=== PATIENT | female | born 1945 | race Caucasian/White ===

== ENCOUNTER → 2017-02-15 | Outpatient (CLI) | payer BC ==
[2017-02-15 11:22] LABS: CHOLESTEROL/HDL RATIO 4.1; THYROID STIMULATING HORMONE 3.87 uIu/ml (0.300-4.500)
[2017-02-15 11:23] LABS: ALT/SGPT 27 U/L (12-78); AST/SGOT 17 U/L (15-37); BLOOD UREA NITROGEN 14 mg/dl (7-18); BUN/CREATININE RATIO 11.7 (10-20); CALCIUM 8.9 mg/dl (8.5-10.1); CARBON DIOXIDE 24 mmol/L (21-32); CHLORIDE 109 mmol/L (98-107); GLUCOSE 114 mg/dl (70-99); POTASSIUM 4.4 mmol/L (3.5-5.1); SODIUM 143 mmol/L (136-145)
[2017-02-15 11:24] LABS: ALB/GLOB RATIO 0.9 (0.9-2); ALKALINE PHOSPHATASE 67 U/L (45-117)
[2017-02-15 12:01] LABS: ESTIMATED AVERAGE GLUCOSE 134 mg/dl; HA1C FLAG Normal (Normal)
== END | disposition home or self-care (01) ==
LOC: C.LAB 07:40
PROVIDERS: ATTEND Internal Medicine
DX: R73.9 Hyperglycemia, unspecified (principal); E78.5 Hyperlipidemia, unspecified; R73.09 Other abnormal glucose

== ENCOUNTER → 2017-03-08 | Outpatient (CLI) | payer BC ==
--- NOTE | 2017-03-08 09:48 | DIAGNOSTIC IMAGING REPORT ---
MRI OF THE BRAIN WITHOUT CONTRAST CLINICAL HISTORY: Motion disorder. Vertigo/dizziness. ATAXIA COMPARISON STUDY: February 2014 FINDINGS: Sagittal T1, axial diffusion, proton density and T2 weighted axial, coronal FLAIR, and axial T1-weighted images were acquired. No intra or extra-axial mass lesions are visualized Axial diffusion-weighted images reveal no evidence of acute or subacute infarction. There is no evidence of ventricular dilatation. Proton density T2-weighted and FLAIR images reveal slight progression in the scattered foci of increased T2 and FLAIR signal within the white matter. These are likely on a small vessel basis. There are no abnormal flow voids. IMPRESSION: 1. No evidence of intracranial mass on this noncontrast study 2. No evidence of acute or subacute infarction 3. Slight progression in the nonspecific foci of increased T2 and FLAIR signal within the white matter, likely on a small vessel basis Electronically signed by: Mahamed Martin M.D. 03/08/2017 9:46 AM Dictated Date/Time: 03/08/2017 9:42 AM
== END | disposition home or self-care (01) ==
LOC: C.MRIBC 08:38
PROVIDERS: ATTEND Internal Medicine
DX: R27.0 Ataxia, unspecified (principal)

== ENCOUNTER → 2017-05-01 | Outpatient (CLI) | payer BC ==
--- NOTE | 2017-05-01 15:35 | MAMMOGRAPHY REPORT ---
BILATERAL DIGITAL SCREENING MAMMOGRAM WITH CAD: 05/01/2017 CLINICAL HISTORY: Routine screening examination. TECHNIQUE: Bilateral CC and MLO views were obtained. Current study was also evaluated with a Compute r Aided Detection (CAD) system. COMPARISON: Comparison is made to exams dated: 05/04/2016 mammogram, 05/01/2015 mammogram, 04/30/2014 m ammogram, 05/02/2013 mammogram, 04/29/2013 mammogram, and 05/04/2012 mammogram - [facility] enter. BREAST COMPOSITION: The tissue of both breasts is almost entirely fatty. FINDINGS: There is a stable grouping of benign-appearing microcalcifications in the lower inner quadr ant of the left breast. No suspicious mass, architectural distortion or cluster of suspicious microc alcifications is seen. IMPRESSION: ACR BI-RADS CATEGORY 1: NEGATIVE There is no mammographic evidence of malignancy. A 1 year screening mammogram is recommended. The pa tient will receive written notification of the results. Approximately 10% of breast cancers are not detected with mammography. A negative mammographic report should not delay biopsy if a clinically suggestive mass is present. Nelli Box M.D. ay/:05/01/2017 14:36:48 Disaster Recovery Consultant: Magda ALVAREZ(R)(M), [facility] letter sent: Normal 1/2 BI-RADS Code: ACR BI-RADS Category 1: Negative
== END | disposition home or self-care (01) ==
LOC: C.MAMM 13:55
PROVIDERS: ATTEND Internal Medicine
DX: Z12.31 Encounter for screening mammogram for malignant neoplasm of breast (principal)

== ENCOUNTER 2024-08-11 14:08 | Inpatient (IN) ==
--- NOTE | 2024-08-11 14:58 | Emergency Department Note ---
Impression & Plan Weakness, Metastatic cancer ED Provider Note Provider: Quentin Evans MD CHIEF COMPLAINT: Weakness HISTORY OF PRESENT ILLNESS: Patient is a 79-year-old female past medical history of prior treated breast cancer in 2019 presenting here today with generalized weakness from home via ambulance. Patient started to have some headaches and then hearing issues in June and was diagnosed with multiple brain masses last month. Patient has been undergoing oncological workup radiation oncology 2 days ago. Had a PET scan on August 07 this year. Scheduled for radiation to start this coming . Still pending a biopsy to determine primary cancer although states that they seem to think this is likely lung cancer. Has not had a outpatient bronchoscopy for biopsy scheduled. Patient's been having significant generalized weakness over the past several weeks. Almost stuck on the couch. Patient has not had significant falls. Does report that she really worries about going to the bathroom as there are several steps she has to go to to get there. Has trouble getting off the toilet and then getting up to 2 steps back to the area where she stays at her house. states he has a bad back and just cannot keep up with this anymore. Came here as they need additional assistance. Patient has been eating and drinking. Denies significant pain currently. No significant fevers or nausea or vomiting reported. PAST MEDICAL HISTORY: As noted above MEDICATIONS: Reviewed home medications currently on dexamethasone twice daily. SOCIAL HISTORY: lives at home PHYSICAL EXAM: GENERAL: alert and oriented in no acute distress on stretcher Head: normocephalic and atraumatic EYES: No injection, discharge or icterus. PERRL, EOMI. NECK: Trachea midline. ENT: Mucous membranes pink and moist. LUNGS: Airway patent. No retractions. Breath sounds clear HEART: Regular rate and rhythm. No chest wall tenderness ABDOMEN: Soft and non-tender, without guarding or rebound. SKIN: Acyanotic, warm, dry, without rashes EXTREMITIES: Without swelling, tenderness or deformity NEUROLOGICAL: No focal deficits. No aphasia. No facial droop or slurred speech. Normal strength and tone in the extremities. Sensation to gross touch normal EK beats per minute. Normal sinus rhythm. A bit of artifact but no acute ST segment elevation or depression with a QTc of 447. CONTINUOUS CARDIAC MONITORING: was ordered and showed a heart rate of 80s to 90s bpm in normal sinus rhythm Patient's laboratory studies and imaging reviewed. Differential includes Infection, dehydration, metabolic abnormality, hypo/hyperglycemia, electrolyte disturbance, anemia, hypoxia, cardiac sources, intracerebral event, toxicologic, neurologic, as well as other pathologies. IMPRESSION/MEDICAL DECISION MAKING: Discussed with patient and later when he arrives the situation. New cancer diagnosis metastatic undergoing workup. Has been on steroids for several weeks. Endorsing generalized weakness. Likely is not suffered any significant traumatic falls. Patient denies headache at this time. Did have recent PET scan just this past week. Chest x-ray EKG and basic labs were obtained. 1 to ensure there is no electrolyte abnormality from the chronic steroid usage. Primary issue is however generalized weakness and her inability to care for herself at home even with her 's assistance. They are seeking additional resources and/or placement. Did consider a CT of the head however discussion with the more gradual onset of weakness rather than acute change no acute neurological deficits will defer. Nursing will assist and have pure wick catheter available. Blood work here today without anemia but some slight thrombocytopenia platelet count of 100 with a white blood cell count of 18.8. Has been on high-dose dexamethasone and no other infectious symptoms reported. Has had a benign outpatient LP in the last several weeks and I doubt this represents meningitis. Again she denies any pain or fevers. Chest x-ray here with some lung scarring and streakiness towards the right lung base. Some chronic CKD noted. No severe electrolyte abnormalities. Troponin elevation of 164 without prior baseline. Not having active chest pain or significant EKG changes at this point. Unsure if it may just be chronic. Blood pressure is improving here. No evidence significant urine retention at this time. Discussed with case management and will bring in for further care to the hospital. Discussed with the hospitalist team. Could possibly have pulmonary consultation to see if bronchoscopy could be arranged either inpatient or in close outpatient follow-up. DIAGNOSIS: Weakness, metastatic cancer, CKD, elevated troponin DISPOSITION: Hospitalist will evaluate Patient was agreeable with this plan. 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 hearing loss (SNHL) of left ear with restricted hearing of right ear Asymmetrical left sensorineural hearing loss Hearing loss Lymphedema Ear pain Chronic kidney disease (CKD) Umbilical hernia Tinea corporis Adenocarcinoma of breast (Acute) Ataxia (Acute) Hyperlipidemia (Acute) Osteopenia (Acute) Prediabetes (Acute) Subclinical hypothyroidism (Acute) Vitamin D deficiency (Acute) Malignant neoplasm of upper-outer quadrant of right breast in female, estrogen receptor positive (Chronic 06/12/18) Acquired lymphedema of lower extremity (Chronic) 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) Medical History Depression Anxiety Lymphedema of lower extremity Osteopenia Ataxia Refusal of blood transfusions as patient is Christianity Breast cancer Insomnia Cellulitis Hypothyroidism Surgical History H/O eye surgery History of lumbar laminectomy H/O tubal ligation History of dilatation and curettage History of carpal tunnel release of both wrists History of bilateral cataract extraction History of tooth extraction History of tonsillectomy History of adenoidectomy History of section History of discectomy History of breast biopsy Family History Mother Alcoholism Cirrhosis of liver Bipolar disorder Diabetes Thyroid disorder Arthritis Hypertension Kidney disease Breast cancer Father Smoker Lung disease Heart disease C. difficile diarrhea Fall Prostate cancer Hypertension Sister No problems noted. Sister No problems noted. Sister No problems noted. Daughter Unknown family medical history Son Kerwin's disease Obesity Family/Other No problems noted. Family/Other No problems noted. Grandmother (Maternal) Breast cancer Aunt Breast cancer Grandmother (Paternal) Diabetes Grandfather (Maternal) Diabetes Other Hypothyroidism Denies family history of Colon cancer Ovarian cancer Social History Smoking Status: Former smoker Tobacco Type: Cigarettes Age Started Using Tobacco: 19; Age Quit Using Tobacco: 48; packs per day: 1; Cigarettes Per Day: 1 PPD when smoking; Second Hand Exposure: No; Do You Dip or Chew Tobacco: No; Hx Alcohol Use: No Hx Substance Use: No Preferred Language: [place] Communication Ability: Effective Visual Impairment: No Limitations Hearing Ability: Hard of Hearing 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 Beliefs That Will Affect Care: None marital status: Current Living Situation: Spouse current occupational status: retired Feels Safe at Home: Yes Childhood Exposure to Second-Hand Smoke: Yes Diet: other caffeine: Yes (1 cup/day) during the past year weight has: remained stable Dental Care, Regularly: Yes Physical Activity Frequency: Does not Exercise Seatbelt Use: always Sunscreen Use: Yes Allergies Allergies Allergy/AdvReac Type Severity Reaction Status Date / Time codeine Allergy Intermediate GI SYMPTOMS Verified 08/09/24 09:55 niacin Allergy Intermediate ITCHING Verified 08/09/24 09:55 naproxen [From Aleve] Allergy EYE Verified 08/09/24 09:55 HEMMORAGE tramadol Allergy SEVERE Verified 08/09/24 09:55 ITCHING Topical Alcohol Allergy Mild Rash Uncoded 08/09/24 09:55 Home Meds Home Medications Medication Instructions Recorded Confirmed dexamethasone 4 mg tablet 8 mg PO BID head ache 08/11/24 08/11/24 Results & Data (ED) Vital Signs Vital Signs - 24 hr 08/11/24 14:13 08/11/24 14:13 08/11/24 14:13 Temperature 36.6 C 36.6 C Temperature Source Oral Oral Pulse Rate 96 H Pulse Rate [Apical] 92 H Respiratory Rate 16 12 Respiratory Effort / Characteristics Non-Labored Spontaneous Non-Labored Respiratory Depth Normal Normal Blood Pressure 197/114 H Blood Pressure [Right Arm] 197/114 H Blood Pressure Mean 141 Blood Pressure Mean [Right Arm] 141 Blood Pressure Position Semi-fowlers Blood Pressure Position [Right Arm] Semi-fowlers Pulse Oximetry 98 98 98 Oxygen Delivery Method Room Air Room Air Room Air Sepsis Recent Fever Within 48 Hours No Sepsis New/Unexplained Change in Mental Status N/A Sepsis Action Taken by Nursing No Action Required 08/11/24 14:43 08/11/24 15:31 08/11/24 15:49 Temperature Temperature Source Pulse Rate 88 89 Pulse Rate [Apical] 89 Respiratory Rate 21 16 Respiratory Effort / Characteristics Non-Labored Spontaneous Respiratory Depth Normal Blood Pressure Blood Pressure [Right Arm] 148/112 H Blood Pressure Mean Blood Pressure Mean [Right Arm] 124 Blood Pressure Position Blood Pressure Position [Right Arm] Semi-fowlers Pulse Oximetry 97 97 Oxygen Delivery Method Room Air Room Air Sepsis Recent Fever Within 48 Hours Sepsis New/Unexplained Change in Mental Status Sepsis Action Taken by Nursing Laboratory Data 08/11/24 14:54 08/11/24 14:54 Lab Results 08/11/24 08/11/24 Range/Units 14:54 15:02 WBC 18.83 H (4.8-10.8) K/ul RBC 5.11 (4.20-5.40) M/uL Hgb 14.3 (12.0-16.0) g/dl Hct 41.9 (37.0-47.0) % MCV 82.0 (80.0-100.0) fL MCH 28.0 (25.0-34.0) pg MCHC 34.1 (32.0-36.0) g/dL RDW Std Deviation 43.2 (36.4-46.3) fL RDW Coeff of Delisa 14.5 (11.5-14.5) % Plt Count 100 L (130-400) K/uL MPV 10.0 (9.4-12.4) fL Immature Gran % (Auto) 1.5 % Neut % (Auto) 91.4 % Lymph % (Auto) 2.6 % [place] % (Auto) 4.2 % Eos % (Auto) 0.1 % Baso % (Auto) 0.2 % Neut # (Auto) 17.21 H (1.40-6.50) K/uL Lymph # (Auto) 0.49 L (1.20-3.40) K/uL [place] # (Auto) 0.80 H (0.11-0.59) K/uL Eos # (Auto) 0.01 (0.00-0.50) K/uL Baso # (Auto) 0.04 (0.00-0.20) K/uL Immature Gran # (Auto) 0.28 H (0.01-0.20) K/uL PT 11.0 (9.0-12.0) Seconds INR 1.0 (0.9-1.1) Sodium 137 (136-145) mmol/L Potassium 4.1 (3.5-5.1) mmol/L Chloride 104 (98-107) mmol/L Carbon Dioxide 23 (21-32) mmol/L Anion Gap 10 (3-11) BUN 46 H (6-23) mg/dl Creatinine 1.86 H (0.6-1.2) mg/dl Est Cr Clr Drug Dosing 23.6 ml/min eGFR 27.55 BUN/Creatinine Ratio 24.7 H (10-20) Glucose 225 H (70-99(Fasting)) mg/dl Calcium 8.5 L (8.6-10.3) mg/dl Magnesium 2.2 (1.7-2.4) mg/dl Total Bilirubin 0.9 (0.2-1.0) mg/dl AST 18 (13-39) U/L ALT 48 (7-52) U/L Alkaline Phosphatase 67 (34-104) U/L Total Creatine Kinase 54 (26-192) U/L Troponin I High Sens 164.7 H* (0-14) pg/ml Total Protein 5.5 L (6.0-8.3) gm/dl Albumin 3.2 L (3.4-5.0) gm/dl Globulin 2.3 L (2.5-4.0) gm/dl Albumin/Globulin Ratio 1.4 (0.9-2) TSH 0.664 (0.300-4.500) uIu/ml Adenovirus (PCR) Not Detected (NotDetected) B. pertussis DNA (PCR) Not Detected (NotDetected) B.parapertussis DNA PCR Not Detected (NotDetected) C. pneumoniae DNA (PCR) Not Detected (NotDetected) Coronavirus OC43 (PCR) Not Detected (NotDetected) Coronavirus HKU1 (PCR) Not Detected (NotDetected) Coronavirus 229E (PCR) Not Detected (NotDetected) SARS-CoV-2 (PCR) Not Detected (NotDetected) Coronavirus NL63 (PCR) Not Detected (NotDetected) Human Metapneumovir PCR Not Detected (NotDetected) Influenza Type A (PCR) Not Detected (NotDetected) Influenza Type B (PCR) Not Detected (NotDetected) M. pneumoniae (PCR) Not Detected (NotDetected) Parainfluenza 1 (PCR) Not Detected (NotDetected) Parainfluenza 2 (PCR) Not Detected (NotDetected) Parainfluenza 3 (PCR) Not Detected (NotDetected) Parainfluenza 4 (PCR) Not Detected (NotDetected) RSV (PCR) Not Detected (NotDetected) Entero/Rhino (PCR) Not Detected (NotDetected) Imaging Data Radiologist's Impression: Chest X-Ray 08/11/24 14:25 EXAM:Radiograph of the Chest 1 View INDICATION: Weakness. TECHNIQUE: Frontal view of the chest. COMPARISON:06/13/2024 FINDINGS: Lungs and pleural spaces: Stable streaky scarring in the lung bases. Resolved right pleural effusion. No pneumothorax. Heart: Stable prominent cardiac shadow. Mediastinum: Normal contour. Bones/joints: No fracture, erosion or dislocation. Soft tissues: No abnormality noted. No radiopaque foreign body noted. Upper abdomen: No abnormality noted. IMPRESSION: Stable streaky scarring in the lung bases. Resolved right pleural effusion. ACT 112: Negative or not required by law. Electronically signed by Giana Valenzuela 08-11-2024 3:31 PM Discharge Plan Visit Data Chief Complaint: Weakness ED Provider: Quentin Evans Discharge Problem: Weakness, Metastatic cancer Patient Disposition: Being Evaluated by Hospitalist Forms Stand Alone Forms: [facility] [employer] Prescriptions Prescriptions: No Action dexamethasone 4 mg tablet 8 mg PO BID Rx Instructions: Twice daily and may increase to 3 times daily if symptomatic. Referrals Referrals: ProHadley MD [Primary Care Provider] -
--- NOTE | 2024-08-11 15:31 | XRay Report ---
EXAM:Radiograph of the Chest 1 View INDICATION: Weakness. TECHNIQUE: Frontal view of the chest. COMPARISON:06/13/2024 FINDINGS: Lungs and pleural spaces: Stable streaky scarring in the lung bases. Resolved right pleural effusion. No pneumothorax. Heart: Stable prominent cardiac shadow. Mediastinum: Normal contour. Bones/joints: No fracture, erosion or dislocation. Soft tissues: No abnormality noted. No radiopaque foreign body noted. Upper abdomen: No abnormality noted. IMPRESSION: Stable streaky scarring in the lung bases. Resolved right pleural effusion. ACT 112: Negative or not required by law. Electronically signed by Giana Valenzuela 08-11-2024 3:31 PM
[2024-08-11 15:32] LABS: Hematocrit (blood only) 41.9 % (37.0-47.0); Hemoglobin 14.3 g/dl (12.0-16.0); Mean Corpuscular Hgb Conc 34.1 g/dL (32.0-36.0); Platelet Count 100 K/uL (130-400); RDW Coefficient of Variation 14.5 % (11.5-14.5); RDW Standard Deviation 43.2 fL (36.4-46.3); Red Blood Count 5.11 M/uL (4.20-5.40); White Blood Count 18.83 K/ul (4.8-10.8)
[2024-08-11 15:40] LABS: Albumin Globulin Ratio 1.4 (0.9-2); Albumin Level 3.2 gm/dl (3.4-5.0); BUN Creatinine Ratio 24.7 (10-20); Bilirubin,Total 0.9 mg/dl (0.2-1.0); Calcium 8.5 mg/dl (8.6-10.3); Creatinine Clr Calc Pharmacy 23.6 ml/min; Globulin 2.3 gm/dl (2.5-4.0); Magnesium 2.2 mg/dl (1.7-2.4); Potassium 4.1 mmol/L (3.5-5.1); Total Protein 5.5 gm/dl (6.0-8.3)
[2024-08-11 15:49] LABS: Basophils # (auto) 0.04 K/uL (0.00-0.20); Basophils % (auto) 0.2 %; Eosinophils # (auto) 0.01 K/uL (0.00-0.50); Eosinophils % (auto) 0.1 %; Immature Granulocytes # (auto) 0.28 K/uL (0.01-0.20); Immature Granulocytes % (auto) 1.5 %; Lymphocytes # (auto) 0.49 K/uL (1.20-3.40); Lymphocytes % (auto) 2.6 %; Monocytes % (auto) 4.2 %; Neutrophils # (auto) 17.21 K/uL (1.40-6.50); Neutrophils % (auto) 91.4 %
[2024-08-11 15:56] LABS: Thyroid Stimulating Hormone 0.664 uIu/ml (0.300-4.500)
[2024-08-11 15:59] LABS: Troponin I High Sensitivity 164.7 pg/ml (0-14)
[2024-08-11 16:21] LABS: Adenovirus PCR Not Detected (NotDetected); Bordetella parapertussis PCR Not Detected (NotDetected); Bordetella pertussis PCR Not Detected (NotDetected); Chlamydia pneumoniae PCR Not Detected (NotDetected); Coronavirus 229E PCR Not Detected (NotDetected); Coronavirus CoV-2 (COVID19)PCR Not Detected (NotDetected); Coronavirus HKU1 PCR Not Detected (NotDetected); Coronavirus NL63 PCR Not Detected (NotDetected); Coronavirus OC43PCR Not Detected (NotDetected); Human Metapneumovirus PCR Not Detected (NotDetected); Influenza A PCR Not Detected (NotDetected); Influenza B PCR Not Detected (NotDetected); Mycoplasma pneumoniae PCR Not Detected (NotDetected); Parainfluenza Virus 1 PCR Not Detected (NotDetected); Parainfluenza Virus 2 PCR Not Detected (NotDetected); Parainfluenza Virus 3 PCR Not Detected (NotDetected); Parainfluenza Virus 4 PCR Not Detected (NotDetected); Respiratory Syncytial VirusPCR Not Detected (NotDetected); Rhinovirus/Enterovirus PCR Not Detected (NotDetected)
--- NOTE | 2024-08-11 16:48 | History & Physical Report ---
Date of Service August 11, 2024 Assessment & Plan (1) Weakness: Plan: Patient with metastasis below, ongoing weakness x 1 month with dexamethasone use for headaches Patient's no longer able to assist her with ambulation around the house No signs of infectious etiology, denies cough, dyspnea, urinary urgency/frequency/hematuria, VSS continue dexamethasone PT/OT consults placed Case management consulted; family looking for likely long-term placement versus acute rehab, symptoms will likely persist with steroid use and cancer treatment Family looking for counseling with these difficult times Denies wanting to speak with audio visual design engineer at this time (2) Metastatic cancer: Plan: Patient with breast cancer in 2019 Diagnosed with brain mass in June and pulmonary nodules found PET scan 08/[address] Tong and Dr. Beyer, to begin radiation on Is to have bronchoscopy set up - unsure of when this will be, can reach out to Dr. Tong in the morning and see if he would like pulmonology to assess patient here for bronchoscopy during inpatient stay Headache secondary to brain mass, continue dexamethasone (3) Leukocytosis: Plan: WBC 18.3 with neutrophil predominance and very mild left shift 0.28 Likely secondary to long-term steroid use Continue to trend CBC Infectious etiology at this time, UA ordered (4) Elevated troponin: Plan: 164.7 on admission Will continue to trend overnight Denies chest pain EKG showing NSR, no significant ST changes monitor on tele, can likely downgrade in AM if trop downtrends Plan VTE ppx: Heparin given poor renal function with CKD Diet: regular, easy to chew, boost shakes ordered Code status: DNR/DNI Dispo: Med/tele with elevated trop Admission and Anticipated Discharge Date Admission Date: 08/11/24 History of Present Illness Chief Complaint: weakness Primary Care Provider: Hadley Nuno MD Patient is a 79-year-old female with past history of breast cancer diagnosed in 2019, new brain and pulmonary masses found (to begin radiation therapy on ), hyperlipidemia, prediabetes, subclinical thyroidism, vitamin D deficiency, CKD. She presents today with her due to weakness for the past month, he has had difficulty helping her to the bathroom of the steps for the past few days. She denies history of falls. She denies pain. Patient is hard of hearing so has been provided the following history. He stated that she began with a headache, loss of taste to the left side of her tongue, and difficulty moving her jaw over the summer. She had a brain MRI that showed a brain mass. They then followed with oncology who ordered a PET scan which confirmed left frontal lobe mass with 3 other small masses. they had appointments with Dr. Tong and Dr. Beyer on Monday to discuss bronchoscopy for pulmonary nodule and radiation to begin on . Based off bronchoscopy results will begin chemo once radiation is complete. Her comes in today with concerns with mobility, he cannot assist her to the bathroom anymore. They have about 5 steps from the couch to the bathroom and he cannot seem to get her back after she sits on the toilet. She seems to use all her strength to get there. He stated that her headaches have improved with twice daily dexame thasone although dexamethasone has contributed to her weakness. He is aware that PT/OT consults were placed but they are looking for likely long-term nursing facility placement versus acute rehab as weakness will likely continue with ongoing treatments. Patient denies a headache right now. She took her morning medications but will need her evening dose of dexamethasone; ordered. She has had decreased appetite and likes mostly sized food, agreeable to Ensure shakes. Denies past history of diabetes or VTE. Allergies Allergy/AdvReac Type Severity Reaction Status Date / Time codeine Allergy Intermediate GI SYMPTOMS Verified 08/09/24 09:55 niacin Allergy Intermediate ITCHING Verified 08/09/24 09:55 naproxen [From Aleve] Allergy EYE Verified 08/09/24 09:55 HEMMORAGE tramadol Allergy SEVERE Verified 08/09/24 09:55 ITCHING Topical Alcohol Allergy Mild Rash Uncoded 08/09/24 09:55 Home Medications Medication Instructions Recorded Confirmed Type dexamethasone 4 mg tablet 8 mg PO BID head ache 08/11/24 08/11/24 History 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 hearing loss (SNHL) of left ear with restricted hearing of right ear Asymmetrical left sensorineural hearing loss Hearing loss Lymphedema Ear pain Chronic kidney disease (CKD) Umbilical hernia Tinea corporis Adenocarcinoma of breast (Acute) Ataxia (Acute) Hyperlipidemia (Acute) Osteopenia (Acute) Prediabetes (Acute) Subclinical hypothyroidism (Acute) Vitamin D deficiency (Acute) Malignant neoplasm of upper-outer quadrant of right breast in female, estrogen receptor positive (Chronic 06/12/18) Acquired lymphedema of lower extremity (Chronic) 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) Medical History Depression Anxiety Lymphedema of lower extremity Osteopenia Ataxia Refusal of blood transfusions as patient is Confucianist Breast cancer Insomnia Cellulitis Hypothyroidism Surgical History H/O eye surgery History of lumbar laminectomy H/O tubal ligation History of dilatation and curettage History of carpal tunnel release of both wrists History of bilateral cataract extraction History of tooth extraction History of tonsillectomy History of adenoidectomy History of section History of discectomy History of breast biopsy Family History Mother Alcoholism Cirrhosis of liver Bipolar disorder Diabetes Thyroid disorder Arthritis Hypertension Kidney disease Breast cancer Father Smoker Lung disease Heart disease C. difficile diarrhea Fall Prostate cancer Hypertension Sister No problems noted. Sister No problems noted. Sister No problems noted. Daughter Unknown family medical history Son Kerwin's disease Obesity Family/Other No problems noted. Family/Other No problems noted. Grandmother (Maternal) Breast cancer Aunt Breast cancer Grandmother (Paternal) Diabetes Grandfather (Maternal) Diabetes Other Hypothyroidism Denies family history of Colon cancer Ovarian cancer Social History Smoking Status: Former smoker Tobacco Type: Cigarettes Age Started Using Tobacco: 19; Age Quit Using Tobacco: 48; packs per day: 1; Cigarettes Per Day: 1 PPD when smoking; Second Hand Exposure: No; Do You Dip or Chew Tobacco: No; Hx Alcohol Use: No Hx Substance Use: No Preferred Language: Kazakh Communication Ability: Effective Visual Impairment: No Limitations Hearing Ability: Hard of Hearing Life Insurance Agent Required: No Beliefs That Will Affect Care: None marital status: Current Living Situation: Spouse current occupational status: retired Feels Safe at Home: Yes Childhood Exposure to Second-Hand Smoke: Yes Diet: other caffeine: Yes (1 cup/day) during the past year weight has: remained stable Dental Care, Regularly: Yes Physical Activity Frequency: Does not Exercise Seatbelt Use: always Sunscreen Use: Yes Review of Systems Review of Systems: see HPI Physical Exam Physical Exam: The patient is awake, alert and oriented 3, well developed and well nourished, normocephalic and atraumatic, in no acute distress. Non-toxic appearing. HEENT- EOMI, mucous membranes moist. Hard of hearing. Heart-normal S1 and S2. No murmurs, rubs or gallops. Lungs-clear bilaterally, no respiratory distress, no accessory muscle use. Abdomen-normal bowel sounds and soft. No ascites noted. Non-tender. Extremities- no clubbing, cyanosis, or edema. Rheumatologic-decreased range of motion. Results & Data Results & Data Vital Signs (Past 12 Hours) Vital Signs Temp Pulse Pulse Resp BP BP Pulse Ox 08/11/24 15:49 89 08/11/24 15:31 89 16 148/112 H 97 08/11/24 14:43 88 21 97 08/11/24 14:13 36.6 C 92 H 12 197/114 H 98 08/11/24 14:13 98 08/11/24 14:13 36.6 C 96 H 16 197/114 H 98 O2 Del Method 08/11/24 15:49 08/11/24 15:31 Room Air 08/11/24 14:43 Room Air 08/11/24 14:13 Room Air 08/11/24 14:13 Room Air 08/11/24 14:13 Room Air Code Status & VTE Plan Code Status dnr/dni VTE Prophylaxis Plan VTE Prophylaxis will be ordered: Yes Supervising Physician Co-Signing Physician Notes Patient seen and examined, chart reviewed, case discussed with Monica Castorena PA-C and I agree with the assessment and plan as above except as otherwise noted Labs and images reviewed 79-year-old female with past medical of breast cancer, brain/pulmonary metastasis, edema, CKD who presents with progressive weakness and inability to ambulate independently care needs exceeding her current living situation. Suspect mild leukocytosis is from steroids, no evidence of acute infection with UA bland and BioFire negative, and no symptoms of pneumonia. Seen at the bedside. No acute distress and eating dinner comfortably. Would like her dexamethasone which is pending in the next half hour otherwise no questions. Admitted with PT/OT consultation, agree with above PG Care Time/CCT Total # of Minutes Spent Total Time Spent with Patient: Total time spent is greater than 50% in coordination of care (as documented) at patient's floor/unit and/or counseling patient: Coding Level of Care Code 28235 INT INP/OBS CARE 3/75MIN Diagnoses Weakness R53.1 Metastatic cancer C79.9 Leukocytosis D72.829 Elevated troponin R79.89
[2024-08-11 19:11] LABS: Appearance Urine Clear (Clear); Bacteria Urine Automated None Seen (None Seen); Bilirubin Urine Negative (Negative); Blood Urine Negative (Negative); Cast Urine Automated 0-2 /lpf (0-2); Color Urine Yellow; Glucose Urine UA 2+ (Negative); Ketones Urine Trace (Negative); Leukocyte Esterase Urine Trace (Negative); Nitrite Urine Negative (Negative); Protein Urine 1+ (Negative); RBC Urine Automated 0-2 /hpf (0-2); Specific Gravity Urine 1.018 (1.000-1.030); Urobilinogen Urine Negative (Negative); pH Urine 5.5 (4.5-7.5)
[2024-08-11] MEDS: dexAMETHasone 4 MG TAB PO SCH (21:17)
[2024-08-11] MEDS: HEPARIN SOD 5,000 UNIT/0.5 ML VIAL SQ SCH (21:17)
[2024-08-12] MEDS: hydrALAZINE HCL 20 MG/ML VIAL IV ONE (03:26)
[2024-08-12 07:01] LABS: BUN Creatinine Ratio 24.4 (10-20); Calcium 8.3 mg/dl (8.6-10.3); Creatinine Clr Calc Pharmacy 22.2 ml/min; Magnesium 2.1 mg/dl (1.7-2.4); Potassium 4.4 mmol/L (3.5-5.1)
[2024-08-12 07:34] LABS: Hematocrit (blood only) 41.1 % (37.0-47.0); Hemoglobin 14.3 g/dl (12.0-16.0); Mean Corpuscular Hemoglobin 28.3 pg (25.0-34.0); Mean Corpuscular Hgb Conc 34.8 g/dL (32.0-36.0); Mean Corpuscular Volume 81.2 fL (80.0-100.0); Mean Platelet Volume 10.3 fL (9.4-12.4); Platelet Count 91 K/uL (130-400); RDW Coefficient of Variation 14.6 % (11.5-14.5); RDW Standard Deviation 43.1 fL (36.4-46.3); Red Blood Count 5.06 M/uL (4.20-5.40); White Blood Count 13.42 K/ul (4.8-10.8)
[2024-08-12 07:38] LABS: Basophils # (auto) 0.02 K/uL (0.00-0.20); Basophils % (auto) 0.1 %; Immature Granulocytes # (auto) 0.17 K/uL (0.01-0.20); Immature Granulocytes % (auto) 1.3 %; Lymphocytes # (auto) 0.37 K/uL (1.20-3.40); Lymphocytes % (auto) 2.8 %; Monocytes # (auto) 0.19 K/uL (0.11-0.59); Monocytes % (auto) 1.4 %; Neutrophils # (auto) 12.67 K/uL (1.40-6.50); Neutrophils % (auto) 94.4 %
[2024-08-12] MEDS ORDERED: PHARMACY GLYCEMIC MGMT CONSULT PRN (09:30)
[2024-08-12] MEDS ORDERED: CARBOHYDRATES FOR HYPOGLYCEMIA PO PRN (09:45)
[2024-08-12] MEDS ORDERED: GLUCOSE 40% GEL 15 GM TUBE PO PRN (09:45)
[2024-08-12] MEDS ORDERED: GLUCOSE 10 TAB/TUBE PO PRN (09:45)
[2024-08-12] MEDS ORDERED: GLUCAGON FOR INJ 1 MG VIAL SQ PRN (09:45)
[2024-08-12] MEDS ORDERED: DEXTROSE 50% 50 ML SYRINGE IV PRN (09:45)
--- NOTE | 2024-08-12 10:23 | Electrocardiogram Report ---
Test Reason : Blood Pressure : */* mmHG Vent. Rate : 91 BPM Atrial Rate : 91 BPM P-R Int : 140 ms QRS Dur : 86 ms QT Int : 364 ms P-R-T Axes : 59 -20 14 degrees QTcB Int : 447 ms Poor data quality, interpretation may be adversely affected Normal sinus rhythm Moderate voltage criteria for LVH, may be normal variant ( R in aVL , [place] product ) Diffuse Minor Nonspecific ST abnormality Abnormal ECG When compared with ECG of 25-Jun-2018 09:15, Nonspecific ST abnormality now present Confirmed by Miquel Chaparro ([id number]) on 08/12/2024 10:23:09 AM Referred By: REFERRED SELF Confirmed By: Miquel Chaparro
[2024-08-12] MEDS: INSULIN ASPART PER UNIT CHARGE SC SCH (11:01)
--- NOTE | 2024-08-12 13:19 | Pharmacy Report ---
Pharmacy Glycemic Short Note 2 - Date of Service August 12, 2024 - Glycemic Short BSG Results (Last 24 hours): 08/11/24 08/12/24 08/12/24 14:54 06:15 12:07 Glucose 225 H 307 H* POC Glucose 242 H OUTPATIENT ANTIDIABETIC REGIMEN: * None * HbA1c 6.3% 06/14/24 ASSESSMENT: * Muriel is a 79 YOF admitted with weakness due to metastatic cancer. She does not have a history of diabetes, but current BSGs and HbA1c are suggestive of glycemic dysfunction. * All BSGs since admission greater than 200, NovoLog at approximately a weight based stress of 2 ordered. Will add a basal scale at bedtime if BSGs remain elevated. * She is receiving dexamethasone 8mg PO BID to assist with headaches/weakness. Would expect to see some steroid induced hyperglycemia from steroids. PLAN FOR INPATIENT GLYCEMIC CONTROL: * Hold outpatient oral diabetes medications * Basal insulin * Lantus 0-10 units SQ HS (see eMAR for additional details) * Bolus insulin * NovoLog per scale ACHS or Q6hrs while NPO * Goal Range: Low 110 mg/dL - High 140 mg/dL * Correction Factor: 25 mg/dL/unit * Nutritional / Prandial insulin per carb ratio of 1 unit per 8 grams CHO consumed
--- NOTE | 2024-08-12 16:14 | Hospitalist Progress Note ---
Date of Service August 12, 2024 Assessment & Plan (1) Weakness: Plan: Patient with metastasis below, ongoing weakness x 1 month with dexamethasone use for headaches Patient's no longer able to assist her with ambulation around the house No signs of infectious etiology, denies cough, dyspnea, urinary urgency/frequency/hematuria, VSS cutting back dexamethasone to once daily PT/OT consults placed Case management consulted; family looking for likely long-term placement versus acute rehab, symptoms will likely persist with steroid use and cancer treatment Family looking for counseling with these difficult times Denies wanting to speak with wall worker at this time consulted palliative care: will focus on a more comfort approach. (2) Metastatic cancer: Plan: Patient with breast cancer in 2019 Diagnosed with brain mass in June and pulmonary nodules found PET scan 08/[address] Tong and Dr. Beyer, to begin radiation on Is to have bronchoscopy set up - unsure of when this will be, can reach out to Dr. Tong in the morning and see if he would like pulmonology to assess patient here for bronchoscopy during inpatient stay Headache secondary to brain mass, continue dexamethasone (3) Leukocytosis: Plan: WBC 18.3 with neutrophil predominance and very mild left shift 0.28 Likely secondary to long-term steroid use Continue to trend CBC Infectious etiology at this time, UA ordered (4) Elevated troponin: Plan: 164.7 on admission Will continue to trend overnight Denies chest pain EKG showing NSR, no significant ST changes monitor on tele, can likely downgrade in AM if trop downtrends Plan VTE ppx: Heparin given poor renal function with CKD Diet: regular, easy to chew, boost shakes ordered Code status: DNR/DNI Dispo: Med/tele with elevated trop Admission and Anticipated Discharge Date Admission Date: August 11, 2024 Subjective Patient reports no new symptoms. Physical Exam Physical Exam: The patient is awake, alert and oriented 3, well developed and well nourished, normocephalic and atraumatic, in no acute distress. Non-toxic appearing. HEENT- EOMI, mucous membranes moist. Hard of hearing. Heart-normal S1 and S2. No murmurs, rubs or gallops. Lungs-clear bilaterally, no respiratory distress, no accessory muscle use. Abdomen-normal bowel sounds and soft. No ascites noted. Non-tender. Extremities- no clubbing, cyanosis, or edema. Rheumatologic-decreased range of motion. Results & Data Results & Data Vital Signs (Past 12 Hours) Vital Signs Temp Pulse Pulse Resp BP Pulse Ox O2 Del Method 08/12/24 15:10 84 08/12/24 15:10 36.5 C 84 18 178/92 H 96 Room Air 08/12/24 11:44 36.6 C 75 18 166/94 H 97 Room Air 08/12/24 08:05 36.6 C 72 18 176/80 H 99 Room Air 08/12/24 07:30 78 PG Care Time/CCT Total # of Minutes Spent Total Time Spent with Patient: Total time spent is greater than 50% in coordination of care (as documented) at patient's floor/unit and/or counseling patient: Coding Level of Care Code 50552 SUB INP/OBS CARE 2/35MIN Diagnoses Weakness R53.1 Metastatic cancer C79.9 Leukocytosis D72.829 Elevated troponin R79.89
--- NOTE | 2024-08-12 16:21 | Palliative Care Consultation ---
Date of Consultation August 12, 2024 Assessment & Plan (1) Palliative care by specialist: (2) Counseling regarding goals of care: (3) Encounter for hospice care discussion: (4) Comfort measures only status: Plan pt with metastatic cancer, refusing further cancer directed treatments. Met with pt and her spouse Fco at bedside. The couple have been for 54 years and have a daughter, a son and one adult grand daughter. Their son and daughter live within walking distance of their home and are very involved in their lives. Abilio shared that they have had a wonderful life and prior to her illness they were retired and had spent 15 years travelling the world. Muriel shared that they have been to nearly all continents of the world but the final few years they focused on river cruises. Muriel shared that she no longer feels that her life would improve with radiation or chemotherapy. Fco shared that they want to speak with CM about SNF placement so that she can go somewhere to "live this thing out". Muriel shared that she is ready to , saying "let's just get this over with". Discussed hospice and described hospice as a philosophy of care with the goal of minimizing symptom burden and optimizing quality of life after life prolonging therapies are no longer available or no longer desired. Discussed that with transition to comfort directed care, no further life prolonging therapies, diagnostic testing or lab work would be done. Assured management of pain, dyspnea, anxiety, insomnia, or any other discomfort with appropriate palliative medications. Patient stated "that sounds good" and requested transition to com fort directed care at this time. Patient does not c/o any discomfort at this time, all labs and diagnostics discontinued, PRN medications for pain/dyspnea/nausea ordered. Fco shared that he has reviewed and narrowed the list of potential SNF given to him by CM. He shared that their choices in order of preference are 1. [facility]. [facility], and 3. [facility]. I shared this information with CM. Transition to HOSPICE CLINICAL MARKETER discussed with ROBERT BUNDY and attending Dr. Hahn. Discharge to SNF with hospice pending placement. History of Present Illness Reason for Consultation: goals of care Requesting Physician: Joe Hahn Attending Physician: Joe Hahn History of Present Illness Muriel Knox is a 79-year-old female with PMHx of breast cancer now with brain and pulmonary mets, hyperlipidemia, prediabetes, subclinical thyroidism, vitamin D deficiency, CKD. She presents to ED after a month of progressive weakness. Brain MRI revaling mets to brain was done in summer 2/ headache, loss of taste to the left side of her tongue, and difficulty moving her jaw. PET scan which confirmed left frontal lobe mass with 3 other small masses. They had appointments with Dr. Tong and Dr. Beyer on Monday to discuss bronchoscopy for pulmonary nodule and radiation to begin on 08/07. However, due to current progressive weakness they came into the ED for evaluation. Allergies Allergy/AdvReac Type Severity Reaction Status Date / Time codeine Allergy Intermediate GI SYMPTOMS Verified 08/09/24 09:55 niacin Allergy Intermediate ITCHING Verified 08/09/24 09:55 naproxen [From Aleve] Allergy EYE Verified 08/09/24 09:55 HEMMORAGE tramadol Allergy SEVERE Verified 08/09/24 09:55 ITCHING Topical Alcohol Allergy Mild Rash Uncoded 08/09/24 09:55 Home Medications Medication Instructions Recorded Confirmed Type dexamethasone 4 mg tablet 8 mg PO BID head ache 08/11/24 08/11/24 History Patient History Medical History Depression Anxiety Lymphedema of lower extremity Osteopenia Ataxia Refusal of blood transfusions as patient is Pentecostalism Breast cancer Insomnia Cellulitis Hypothyroidism Surgical History H/O eye surgery History of lumbar laminectomy H/O tubal ligation History of dilatation and curettage History of carpal tunnel release of both wrists History of bilateral cataract extraction History of tooth extraction History of tonsillectomy History of adenoidectomy History of section History of discectomy History of breast biopsy Family History Mother Alcoholism Cirrhosis of liver Bipolar disorder Diabetes Thyroid disorder Arthritis Hypertension Kidney disease Breast cancer Father Smoker Lung disease Heart disease C. difficile diarrhea Fall Prostate cancer Hypertension Sister No problems noted. Sister No problems noted. Sister No problems noted. Daughter Unknown family medical history Son Kerwin's disease Obesity Family/Other No problems noted. Family/Other No problems noted. Grandmother (Maternal) Breast cancer Aunt Breast cancer Grandmother (Paternal) Diabetes Grandfather (Maternal) Diabetes Other Hypothyroidism Denies family history of Colon cancer Ovarian cancer Social History Smoking Status: Former smoker Tobacco Type: Cigarettes Age Started Using Tobacco: 19; Age Quit Using Tobacco: 48; packs per day: 1; Cigarettes Per Day: 1 PPD when smoking; Second Hand Exposure: No; Do You Dip or Chew Tobacco: No; Tobacco Cessation Education Requested by Patient: No Hx Alcohol Use: No Hx Substance Use: No Preferred Language: Qatari Communication Ability: Effective Visual Impairment: No Limitations Hearing Ability: Hard of Hearing Stack Attendant Required: No Beliefs That Will Affect Care: Roman Catholic Roman Catholic Beliefs: Jehovah witness marital status: Current Living Situation: Spouse current occupational status: retired Other Information That Helps Us Care for You: No Feels Safe at Home: Yes and No Is there a partner from a previous relationship who is making you feel unsafe now?: No Any Concerns about Your Family Situation: No Would You Like to Speak to Someone About Your Situation: No Safety Concerns: Feels Safe At This Time Childhood Exposure to Second-Hand Smoke: Yes Diet: other caffeine: Yes (1 cup/day) during the past year weight has: remained stable Dental Care, Regularly: Yes Physical Activity Frequency: Does not Exercise Seatbelt Use: always Sunscreen Use: Yes Assistive Devices: None Review of Systems Constitutional: + fatigue and + weakness Eyes: no problem reported Ear, Nose, Mouth, Throat: + hearing loss Cardiovascular: no problem reported Gastrointestinal: + early satiety Neurologic: + generalized weakness Physical Exam Physical Exam: General appearance: The patient is well-appearing and well-nourished Head and face: Normal Pupils equal round reactive to light External inspection of ears and nose : Normal Neck supple trachea midline no thyromegaly Carotid pulses bilaterally with no carotid bruits Respiratory effort normal no increased work of breathing. Lungs are clear with no wheezes crackles or rhonchi. Cardiovascular regular rate and rhythm without murmurs rubs or gallops Abdomen soft nondistended Musculoskeletal exam ambulates with assist no edema. Mental exam normal with stable insight and judgment normal gross memory and normal mood and affect Results & Data Vital Signs (Past 12 Hours) Vital Signs Temp Pulse Pulse Resp BP Pulse Ox O2 Del Method 08/12/24 15:10 84 08/12/24 15:10 36.5 C 84 18 178/92 H 96 Room Air 08/12/24 11:44 36.6 C 75 18 166/94 H 97 Room Air 08/12/24 08:05 36.6 C 72 18 176/80 H 99 Room Air 08/12/24 07:30 78 Laboratory Results Abnormal lab results 08/11/24 08/11/24 08/11/24 Range/Units 17:25 18:53 23:56 WBC (4.8-10.8) K/ul RDW Coeff of Delisa (11.5-14.5) % Plt Count (130-400) K/uL Neut # (Auto) (1.40-6.50) K/uL Lymph # (Auto) (1.20-3.40) K/uL Sodium (136-145) mmol/L BUN (6-23) mg/dl Creatinine (0.6-1.2) mg/dl BUN/Creatinine Ratio (10-20) Glucose (70-99(Fasting)) mg/dl POC Glucose (70-99) mg/dl Calcium (8.6-10.3) mg/dl Troponin I High Sens 158.1 H* 133.7 H* (0-14) pg/ml Urine Protein 1+ H (Negative) Urine Glucose (UA) 2+ H (Negative) Urine Ketones Trace H (Negative) Ur Leukocyte Esterase Trace H (Negative) Urine WBC (Auto) 6-10 H (0-5) /hpf U Epithel Cells (Auto) 3-5 H (0-2) /hpf 08/12/24 08/12/24 Range/Units 06:15 12:07 WBC 13.42 H (4.8-10.8) K/ul RDW Coeff of Delisa 14.6 H (11.5-14.5) % Plt Count 91 L (130-400) K/uL Neut # (Auto) 12.67 H (1.40-6.50) K/uL Lymph # (Auto) 0.37 L (1.20-3.40) K/uL Sodium 135 L (136-145) mmol/L BUN 47 H (6-23) mg/dl Creatinine 1.93 H (0.6-1.2) mg/dl BUN/Creatinine Ratio 24.4 H (10-20) Glucose 307 H* (70-99(Fasting)) mg/dl POC Glucose 242 H (70-99) mg/dl Calcium 8.3 L (8.6-10.3) mg/dl Troponin I High Sens 131.3 H* (0-14) pg/ml Urine Protein (Negative) Urine Glucose (UA) (Negative) Urine Ketones (Negative) Ur Leukocyte Esterase (Negative) Urine WBC (Auto) (0-5) /hpf U Epithel Cells (Auto) (0-2) /hpf Diagnostic Findings Chest X-Ray 08/11/24 14:25 EXAM:Radiograph of the Chest 1 View INDICATION: Weakness. TECHNIQUE: Frontal view of the chest. COMPARISON:06/13/2024 FINDINGS: Lungs and pleural spaces: Stable streaky scarring in the lung bases. Resolved right pleural effusion. No pneumothorax. Heart: Stable prominent cardiac shadow. Mediastinum: Normal contour. Bones/joints: No fracture, erosion or dislocation. Soft tissues: No abnormality noted. No radiopaque foreign body noted. Upper abdomen: No abnormality noted. IMPRESSION: Stable streaky scarring in the lung bases. Resolved right pleural effusion. ACT 112: Negative or not required by law. Electronically signed by Giana Valenzuela 08-11-2024 3:31 PM Medications Administered Current Inpatient Medications Acetaminophen (Acetaminophen 325 Mg Tab) 650 mg PO Q4H PRN PRN Reason: Pain or Fever Stop: 09/10/24 20:19 Dexamethasone (Dexamethasone 4 Mg Tab) 8 mg PO DAILY [facility] Stop: 09/12/24 08:59 Docusate Sodium (Docusate Sodium 100 Mg Cap) 100 mg PO BID PRN PRN Reason: Constipation Stop: 09/10/24 20:19 Heparin Sodium (Porcine) (Heparin Sod 5,000 Unit/0.5 Ml Vial) 5,000 units SQ Q12 [facility] Stop: 09/10/24 20:59 Last Admin: 08/12/24 09:37 Dose: 5,000 units PG Care Time/CCT Total # of Minutes Spent Total Time Spent with Patient: Total time spent is greater than 50% in coordination of care (as documented) at patient's floor/unit and/or counseling patient: Advanced Care Planning 37438 Advanced Care Planning 30 [place] [address] IN/OBS CONSULT LVL 4,60M Patient Type New Medical Decision Making Moderate Complexity Diagnoses Palliative care by specialist Z51.5 Counseling regarding goals of care Z71.89 Encounter for hospice care discussion Z71.89 Comfort measures only status Z51.5 Additional Codes Advanced Care Planning - 74824 Advanced Care Planning 30 Min: 25866 Advanced Care Planning 30 Min ([id number])
[2024-08-12] MEDS ORDERED: ONDANSETRON INJ 2 MG/ML 2 ML VIAL IV PRN (19:36)
[2024-08-12] MEDS ORDERED: LORazepam 2 MG/1 ML VIAL IV PRN (19:42)
[2024-08-12] MEDS ORDERED: ATROPINE SULFATE 1% OP SOLN 5 ML BTL SL PRN (19:45)
[2024-08-12 20:12] VITALS: BP 137/83; RESP 20; TEMP 98.1; O2SAT 97
[2024-08-12] MEDS ORDERED: LANTUS PER UNIT CHARGE SC SCH (21:00)
[2024-08-13] MEDS: MELATONIN 3 MG TAB PO PRN (00:16)
[2024-08-13] MEDS: dexAMETHasone 4 MG TAB PO SCH (12:25)
[2024-08-13] MEDS: ACETAMINOPHEN 325 MG TAB PO PRN (12:25)
--- NOTE | 2024-08-13 15:27 | Palliative Care Progress Note ---
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 Pt requiring minimal PRN medications and therefore does not qualify for [facility] level hospice at this time. End of Life Symptom management: Continue steroids per primary Pain/dyspnea/tachypnea morphine 2mg IVP PRN [id number] Consider titratable morphine drip if pt requires >3 PRN doses in under two consecutive hours. Nausea/vomitting zofran 4mg IVP q4h PRN Agitation ativan 0.5mg IVP q4h PRN Hyperactive delirium haldol 5mg IVP q6h PRN Secretions - if repositioning not effective [robinul 0.4mg IV q4h PRN atropine SL 3 drops Q1h PRN Nursing care: Discontinue all medications not directed towards comfort. Detether pt from IV tubing, monitor cables, and check vitals once per shift. Please continue HFNC and titrate down as able for patient comfort. Use medications above PRN for dyspnea/tachypnea and do not increase oxygen once titrated down. Assess q1h for pain/dyspnea and treat accordingly. Admission and Anticipated Discharge Date Admission Date: August 11, 2024 Subjective Assessed pt at the bedside, she was sleeping soundly. Her spouse was at bedside and requested I not disturb her. Pt appears comfortable. Review of Systems Review of Systems: Unobtainable due to cognitive status Physical Exam Physical Exam: General appearance: The patient is well-appearing and well-nourished Head and face: Normal External inspection of ears and nose : Normal Neck supple trachea midline no thyromegaly Carotid pulses bilaterally with no carotid bruits Respiratory effort normal no increased work of breathing. Lungs are clear with no wheezes crackles or rhonchi. Cardiovascular regular rate and rhythm without murmurs rubs or gallops Abdomen soft nondistended Musculoskeletal exam; moves all extremities, generalized weakness; no edema. 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 Medications Administered Current Inpatient Medications Acetaminophen (Acetaminophen 325 Mg Tab) 650 mg PO Q4H PRN PRN Reason: Pain or Fever Stop: 09/10/24 20:19 Last Admin: 08/13/24 19:34 Dose: 650 mg Atropine Sulfate (Atropine Sulfate 1% Op Soln 5 Ml Btl) 4 drops SL Q1H PRN PRN Reason: Secretions or pulm congestion Stop: 09/11/24 19:44 Dexamethasone (Dexamethasone 4 Mg Tab) 8 mg PO DAILY [facility] Stop: 09/12/24 08:59 Last Admin: 08/13/24 12:25 Dose: 8 mg Docusate Sodium (Docusate Sodium 100 Mg Cap) 100 mg PO BID PRN PRN Reason: Constipation Stop: 09/10/24 20:19 Glycopyrrolate (Glycopyrrolate 0.2 Mg/Ml Vial) 0.4 mg IV Q4H PRN PRN Reason: Rattling Secretions or Pulm Congestion Stop: 09/11/24 19:44 Lorazepam (Lorazepam 2 Mg/1 Ml Vial) 0.5 mg IV Q4H PRN PRN Reason: Anxiety/Agitation Stop: 09/11/24 19:41 Melatonin (Melatonin 3 Mg Tab) 3 mg PO HS PRN PRN Reason: Sleep Stop: 09/12/24 00:07 Last Admin: 08/13/24 19:34 Dose: 3 mg Ondansetron HCl (Ondansetron Inj 2 Mg/Ml 2 Ml Vial) 4 mg IV Q4H PRN PRN Reason: Nausea Stop: 09/11/24 19:35 PG Care Time/CCT Total # of Minutes Spent Total Time Spent with Patient: Total time spent is greater than 50% in coordination of care (as documented) at patient's floor/unit and/or counseling patient: Coding [place] [address] SUB INP/OBS CARE 1/25MIN Patient Type Established History Problem Focused Exam Problem Focused Medical Decision Making Low Complexity Diagnoses Palliative care by specialist Z51.5 Comfort measures only status Z51.5 Need for comfort care
--- NOTE | 2024-08-13 22:52 | Hospitalist Progress Note ---
Date of Service August 13, 2024 Assessment & Plan (1) Weakness: Plan: Patient with metastasis below, ongoing weakness x 1 month with dexamethasone use for headaches Patient's no longer able to assist her with ambulation around the house No signs of infectious etiology, denies cough, dyspnea, urinary urgency/frequency/hematuria, VSS cutting back dexamethasone to once daily PT/OT consults placed Case management consulted; family looking for likely long-term placement versus acute rehab, symptoms will likely persist with steroid use and cancer treatment Family looking for counseling with these difficult times Denies wanting to speak with public stenographer at this time consulted palliative care: will focus on a more comfort approach. No on comfort measures (2) Metastatic cancer: Plan: Patient with breast cancer in 2018 Diagnosed with brain mass in June and pulmonary nodules found PET scan 08/[address] Tong and Dr. Beyer, to begin radiation on Is to have bronchoscopy set up - unsure of when this will be, can reach out to Dr. Tong in the morning and see if he would like pulmonology to assess patient here for bronchoscopy during inpatient stay Headache secondary to brain mass, continue dexamethasone (3) Leukocytosis: Plan: WBC 18.3 with neutrophil predominance and very mild left shift 0.28 Likely secondary to long-term steroid use Continue to trend CBC Infectious etiology at this time, UA ordered (4) Elevated troponin: Plan: 164.7 on admission Will continue to trend overnight Denies chest pain EKG showing NSR, no significant ST changes monitor on tele, can likely downgrade in AM if trop downtrends Plan VTE ppx: Heparin given poor renal function with CKD Diet: regular, easy to chew, boost shakes ordered Code status: DNR/DNI Dispo: Med/tele with elevated trop Admission and Anticipated Discharge Date Admission Date: August 11, 2024 Subjective 79 yo female on comofrt measures. NO complaints. Physical Exam Physical Exam: The patient is awake, alert and oriented 3, well developed and well nourished, normocephalic and atraumatic, in no acute distress. Non-toxic appearing. HEENT- EOMI, mucous membranes moist. Hard of hearing. Heart-normal S1 and S2. No murmurs, rubs or gallops. Lungs-clear bilaterally, no respiratory distress, no accessory muscle use. Abdomen-normal bowel sounds and soft. No ascites noted. Non-tender. Extremities- no clubbing, cyanosis, or edema. Rheumatologic-decreased range of motion. PG Care Time/CCT Total # of Minutes Spent Total Time Spent with Patient: Total time spent is greater than 50% in coordination of care (as documented) at patient's floor/unit and/or counseling patient: Coding Level of Care Code 56313 SUB INP/OBS CARE 09/28MIN Diagnoses Weakness R53.1 Metastatic cancer C79.9 Leukocytosis D72.829 Elevated troponin R79.89
[2024-08-13] MEDS: DOCUSATE SODIUM 100 MG CAP PO PRN (23:13)
[2024-08-13] MEDS: MoRPHine SULFATE 2 MG/ML CARP IV PRN (23:13)
--- NOTE | 2024-08-14 09:19 | Palliative Care Progress Note ---
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 Pt requiring minimal PRN medications and therefore does not qualify for [facility] level hospice at this time. End of Life Symptom management: Continue steroids per primary Pain/dyspnea/tachypnea morphine 2mg IVP PRN [id number] Consider titratable morphine drip if pt requires >3 PRN doses in under two consecutive hours. Nausea/vomitting zofran 4mg IVP q4h PRN Agitation ativan 0.5mg IVP q4h PRN Hyperactive delirium haldol 5mg IVP q6h PRN Secretions - if repositioning not effective [robinul 0.4mg IV q4h PRN atropine SL 3 drops Q1h PRN Nursing care: Discontinue all medications not directed towards comfort. Detether pt from IV tubing, monitor cables, and check vitals once per shift. Please continue HFNC and titrate down as able for patient comfort. Use medications above PRN for dyspnea/tachypnea and do not increase oxygen once titrated down. Assess q1h for pain/dyspnea and treat accordingly. Admission and Anticipated Discharge Date Admission Date: August 11, 2024 Subjective Assessed pt at bedside, no visitors present. Pt sleeping soundly, in NAD on RA. Did not awaken pt in concert with comfort directed care. Review of Systems Review of Systems: Unobtainable due to cognitive status Physical Exam Physical Exam: General appearance: The patient is well-appearing and well-nourished Head and face: Normal External inspection of ears and nose : Normal Neck supple trachea midline no thyromegaly Carotid pulses bilaterally with no carotid bruits Respiratory effort normal no increased work of breathing. Lungs are clear with no wheezes crackles or rhonchi. Cardiovascular regular rate and rhythm without murmurs rubs or gallops Abdomen soft nondistended Musculoskeletal exam; moves all extremities, generalized weakness; no edema. 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 Medications Administered Current Inpatient Medications Acetaminophen (Acetaminophen 325 Mg Tab) 650 mg PO Q4H PRN PRN Reason: Pain or Fever Stop: 09/10/24 20:19 Last Admin: 08/13/24 19:34 Dose: 650 mg Atropine Sulfate (Atropine Sulfate 1% Op Soln 5 Ml Btl) 4 drops SL Q1H PRN PRN Reason: Secretions or pulm congestion Stop: 09/11/24 19:44 Dexamethasone (Dexamethasone 4 Mg Tab) 8 mg PO DAILY [facility] Stop: 09/12/24 08:59 Last Admin: 08/14/24 13:27 Dose: Not Given Docusate Sodium (Docusate Sodium 100 Mg Cap) 100 mg PO BID PRN PRN Reason: Constipation Stop: 09/10/24 20:19 Last Admin: 08/13/24 23:13 Dose: 100 mg Glycopyrrolate (Glycopyrrolate 0.2 Mg/Ml Vial) 0.4 mg IV Q4H PRN PRN Reason: Rattling Secretions or Pulm Congestion Stop: 09/11/24 19:44 Lorazepam (Lorazepam 2 Mg/1 Ml Vial) 0.5 mg IV Q4H PRN PRN Reason: Anxiety/Agitation Stop: 09/11/24 19:41 Melatonin (Melatonin 3 Mg Tab) 3 mg PO HS PRN PRN Reason: Sleep Stop: 09/12/24 00:07 Last Admin: 08/13/24 19:34 Dose: 3 mg Morphine Sulfate (Morphine Sulfate 2 Mg/Ml Carp) 2 mg IV Q4H PRN PRN Reason: Pain or Respiratory Distress Stop: 08/27/24 22:42 Last Admin: 08/14/24 05:37 Dose: 2 mg Ondansetron HCl (Ondansetron Inj 2 Mg/Ml 2 Ml Vial) 4 mg IV Q4H PRN PRN Reason: Nausea Stop: 09/11/24 19:35 PG Care Time/CCT Total # of Minutes Spent Total Time Spent with Patient: Total time spent is greater than 50% in coordination of care (as documented) at patient's floor/unit and/or counseling patient: Coding [place] [address] SUB INP/OBS CARE 09/28MIN Patient Type Established History Problem Focused Exam Problem Focused Medical Decision Making Low Complexity Diagnoses Comfort measures only status Z51.5 Need for comfort care Palliative care by specialist Z51.5
--- NOTE | 2024-08-15 22:37 | Hospitalist Progress Note ---
Date of Service August 15, 2024 Assessment & Plan (1) Weakness: Plan: Patient with metastasis below, ongoing weakness x 1 month with dexamethasone use for headaches Patient's no longer able to assist her with ambulation around the house No signs of infectious etiology, denies cough, dyspnea, urinary urgency/frequency/hematuria, VSS cutting back dexamethasone to once daily PT/OT consults placed Case management consulted; family looking for likely long-term placement versus acute rehab, symptoms will likely persist with steroid use and cancer treatment consulted palliative care: will focus on a more comfort approach. 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 Tong and Dr. Beyer, to begin radiation on Is to have bronchoscopy set up - unsure of when this will be, can reach out to Dr. Tong in the morning and see if he would like pulmonology to assess patient here for bronchoscopy during inpatient stay Headache secondary to brain mass, continue dexamethasone (3) Leukocytosis: Plan: WBC 18.3 with neutrophil predominance and very mild left shift 0.28 Likely secondary to long-term steroid use Continue to trend CBC Infectious etiology at this time, UA ordered (4) Elevated troponin: Plan: 164.7 on admission Will continue to trend overnight Denies chest pain EKG showing NSR, no significant ST changes monitor on tele, can likely downgrade in AM if trop downtrends Plan VTE ppx: Heparin given poor renal function with CKD Diet: regular, easy to chew, boost shakes ordered Code status: DNR/DNI Dispo: Med/tele with elevated trop Admission and Anticipated Discharge Date Admission Date: August 11, 2024 Subjective Patient resting comfortably. Discussed with nurse, no complaints. Physical Exam Constitutional: WD/WN, vitals as above PG Care Time/CCT Total # of Minutes Spent Total Time Spent with Patient: Total time spent is greater than 50% in coordination of care (as documented) at patient's floor/unit and/or counseling patient: Coding Level of Care Code 74244 SUB INP/OBS CARE 1/25MIN Diagnoses Weakness R53.1 Metastatic cancer C79.9 Leukocytosis D72.829 Elevated troponin R79.89
--- NOTE | 2024-08-16 12:44 | Palliative Care Progress Note ---
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 Pt requiring minimal PRN medications and therefore does not qualify for [facility] level hospice at this time. End of Life Symptom management: Continue steroids per primary Pain/dyspnea/tachypnea morphine 2mg IVP PRN [id number] Consider titratable morphine drip if pt requires >3 PRN doses in under two consecutive hours. Nausea/vomitting zofran 4mg IVP q4h PRN Agitation ativan 0.5mg IVP q4h PRN Hyperactive delirium haldol 5mg IVP q6h PRN Secretions - if repositioning not effective [robinul 0.4mg IV q4h PRN atropine SL 3 drops Q1h PRN Nursing care: Discontinue all medications not directed towards comfort. Detether pt from IV tubing, monitor cables, and check vitals once per shift. Please continue HFNC and titrate down as able for patient comfort. Use medications above PRN for dyspnea/tachypnea and do not increase oxygen once titrated down. Assess q1h for pain/dyspnea and treat accordingly. Admission and Anticipated Discharge Date Admission Date: August 11, 2024 Subjective Assessed pt at bedside, she was sleeping soundly and in NAD on room air. Pt was not responsive to verbal or gentle tactile stimuli, I did not arouse pt in concert with comfort directed care. Spouse was at bedside, did not express any questions or concerns. Review of Systems Review of Systems: Unobtainable due to cognitive status Physical Exam Physical Exam: General appearance: The patient is well-appearing and well-nourished Head and face: Normal External inspection of ears and nose : Normal Neck supple trachea midline no thyromegaly Carotid pulses bilaterally with no carotid bruits Respiratory effort normal no increased work of breathing. Lungs are clear with no wheezes crackles or rhonchi. Cardiovascular regular rate and rhythm without murmurs rubs or gallops Abdomen soft nondistended Musculoskeletal exam; moves all extremities, generalized weakness; no edema. 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 Medications Administered Current Inpatient Medications Acetaminophen (Acetaminophen 325 Mg Tab) 650 mg PO Q4H PRN PRN Reason: Pain or Fever Stop: 09/10/24 20:19 Last Admin: 08/13/24 19:34 Dose: 650 mg Atropine Sulfate (Atropine Sulfate 1% Op Soln 5 Ml Btl) 4 drops SL Q1H PRN PRN Reason: Secretions or pulm congestion Stop: 09/11/24 19:44 Dexamethasone (Dexamethasone 4 Mg Tab) 8 mg PO DAILY ARACELI Stop: 09/12/24 08:59 Last Admin: 08/16/24 08:22 Dose: Not Given Docusate Sodium (Docusate Sodium 100 Mg Cap) 100 mg PO BID PRN PRN Reason: Constipation Stop: 09/10/24 20:19 Last Admin: 08/13/24 23:13 Dose: 100 mg Glycopyrrolate (Glycopyrrolate 0.2 Mg/Ml Vial) 0.4 mg IV Q4H PRN PRN Reason: Rattling Secretions or Pulm Congestion Stop: 09/11/24 19:44 Lorazepam (Lorazepam 2 Mg/1 Ml Vial) 0.5 mg IV Q4H PRN PRN Reason: Anxiety/Agitation Stop: 09/11/24 19:41 Melatonin (Melatonin 3 Mg Tab) 3 mg PO HS PRN PRN Reason: Sleep Stop: 09/12/24 00:07 Last Admin: 08/15/24 21:15 Dose: 3 mg Morphine Sulfate (Morphine Sulfate 2 Mg/Ml Carp) 2 mg IV Q4H PRN PRN Reason: Pain or Respiratory Distress Stop: 08/27/24 22:42 Last Admin: 08/15/24 21:19 Dose: 2 mg Ondansetron HCl (Ondansetron Inj 2 Mg/Ml 2 Ml Vial) 4 mg IV Q4H PRN PRN Reason: Nausea Stop: 09/11/24 19:35 PG Care Time/CCT Total # of Minutes Spent Total Time Spent with Patient: Total time spent is greater than 50% in coordination of care (as documented) at patient's floor/unit and/or counseling patient: Coding [place] [address] SUB INP/OBS CARE 2/35MIN Patient Type Established Medical Decision Making Low Complexity Diagnoses Comfort measures only status Z51.5 Need for comfort care Palliative care by specialist Z51.5
--- NOTE | 2024-08-16 22:17 | Hospitalist Progress Note ---
Date of Service August 16, 2024 Assessment & Plan (1) Weakness: Plan: Patient with metastasis below, ongoing weakness x 1 month with dexamethasone use for headaches Patient's no longer able to assist her with ambulation around the house No signs of infectious etiology, denies cough, dyspnea, urinary urgency/frequency/hematuria, VSS cutting back dexamethasone to once daily PT/OT consults placed Case management consulted; family looking for likely long-term placement versus acute rehab, symptoms will likely persist with steroid use and cancer treatment consulted palliative care: will focus on a more comfort approach. 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 Tong and Dr. Beyer, to begin radiation on Is to have bronchoscopy set up - unsure of when this will be, can reach out to Dr. Tong in the morning and see if he would like pulmonology to assess patient here for bronchoscopy during inpatient stay Headache secondary to brain mass, continue dexamethasone (3) Leukocytosis: Plan: WBC 18.3 with neutrophil predominance and very mild left shift 0.28 Likely secondary to long-term steroid use Continue to trend CBC Infectious etiology at this time, UA ordered (4) Elevated troponin: Plan: 164.7 on admission Will continue to trend overnight Denies chest pain EKG showing NSR, no significant ST changes monitor on tele, can likely downgrade in AM if trop downtrends Plan VTE ppx: Heparin given poor renal function with CKD Diet: regular, easy to chew, boost shakes ordered Code status: DNR/DNI Dispo: Med/tele with elevated trop Admission and Anticipated Discharge Date Admission Date: August 11, 2024 Subjective Patient is resting comfortably. Physical Exam Physical Exam: The patient in no acute distress. Non-toxic appearing. HEENT- EOMI, mucous membranes moist. Hard of hearing. Heart-normal S1 and S2. No murmurs, rubs or gallops. Lungs-clear bilaterally, no respiratory distress, no accessory muscle use. Abdomen-normal bowel sounds and soft. No ascites noted. Non-tender. Extremities- no clubbing, cyanosis, or edema. Rheumatologic-decreased range of motion. PG Care Time/CCT Total # of Minutes Spent Total Time Spent with Patient: Total time spent is greater than 50% in coordination of care (as documented) at patient's floor/unit and/or counseling patient: Coding Level of Care Code 98559 SUB INP/OBS CARE Diagnoses Weakness R53.1 Metastatic cancer C79.9 Leukocytosis D72.829 Elevated troponin R79.89
--- NOTE | 2024-08-17 21:33 | Hospitalist Progress Note ---
Date of Service August 17, 2024 Assessment & Plan (1) Weakness: Plan: Patient with metastasis below, ongoing weakness x 1 month with dexamethasone use for headaches Patient's no longer able to assist her with ambulation around the house No signs of infectious etiology, denies cough, dyspnea, urinary urgency/frequency/hematuria, VSS cutting back dexamethasone to once daily PT/OT consults placed Case management consulted; family looking for likely long-term placement versus acute rehab, symptoms will likely persist with steroid use and cancer treatment consulted palliative care: will focus on a more comfort approach. 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 Tong and Dr. Beyer, to begin radiation on Is to have bronchoscopy set up - unsure of when this will be, can reach out to Dr. Tong in the morning and see if he would like pulmonology to assess patient here for bronchoscopy during inpatient stay Headache secondary to brain mass, continue dexamethasone (3) Leukocytosis: Plan: WBC 18.3 with neutrophil predominance and very mild left shift 0.28 Likely secondary to long-term steroid use Continue to trend CBC Infectious etiology at this time, UA ordered (4) Elevated troponin: Plan: 164.7 on admission Will continue to trend overnight Denies chest pain EKG showing NSR, no significant ST changes monitor on tele, can likely downgrade in AM if trop downtrends Plan VTE ppx: Heparin given poor renal function with CKD Diet: regular, easy to chew, boost shakes ordered Code status: DNR/DNI Dispo: Med/tele with elevated trop Admission and Anticipated Discharge Date Admission Date: August 11, 2024 Subjective Patient is resting comfortably. Physical Exam Physical Exam: The patient in no acute distress. Non-toxic appearing. Constitutional: WD/WN, vitals as above PG Care Time/CCT Total # of Minutes Spent Total Time Spent with Patient: Total time spent is greater than 50% in coordination of care (as documented) at patient's floor/unit and/or counseling patient: Coding Level of Care Code 45221 SUB INP/OBS CARE 1/25MIN Diagnoses Weakness R53.1 Metastatic cancer C79.9 Leukocytosis D72.829 Elevated troponin R79.89
[2024-08-18] MEDS: GLYCOPYRROLATE 0.2 MG/ML VIAL IV PRN (13:28)
[2024-08-18 16:27] VITALS: PULSE 0
--- NOTE | 2024-08-18 20:02 | Death Pronouncement Note ---
Date of Service August 18, 2024 Pronouncement Note Admission Date August 11, 2024 Preliminary Cause of (1) Weakness: (2) Metastatic cancer: (3) Leukocytosis: (4) Elevated troponin: Additional Data Attending physician: Joe Hahn Coding Diagnoses Weakness R53.1 Metastatic cancer C79.9 Leukocytosis D72.829 Elevated troponin R79.89
--- NOTE | 2024-08-18 20:02 | Discharge Summary ---
Discharge Summary Date of Service August 18, 2024 Principal Dx & Hospital Course #1 = Principal Diagnosis (1) Weakness: Patient with metastasis below, ongoing weakness x 1 month with dexamethasone use for headaches Patient's no longer able to assist her with ambulation around the house No signs of infectious etiology, denies cough, dyspnea, urinary urgency/frequency/hematuria, VSS cutting back dexamethasone to once daily PT/OT consults placed Case management consulted; family looking for likely long-term placement versus acute rehab, symptoms will likely persist with steroid use and cancer treatment consulted palliative care: will focus on a more comfort approach. 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 Tong and Dr. Beyer, to begin radiation on Is to have bronchoscopy set up - unsure of when this will be, can reach out to Dr. Tong in the morning and see if he would like pulmonology to assess patient here for bronchoscopy during inpatient stay Headache secondary to brain mass, continue dexamethasone (3) Leukocytosis: WBC 18.3 with neutrophil predominance and very mild left shift 0.28 Likely secondary to long-term steroid use Continue to trend CBC Infectious etiology at this time, UA ordered (4) Elevated troponin: Demand ischemia: 164.7 on admission Will continue to trend overnight Denies chest pain EKG showing NSR, no significant ST changes monitor on tele, can likely downgrade in AM if trop downtrends \ *Chronic kidney disease, stage 4 Pt documented to have a hx of CKD. GFR range 19-27 over past two months. Risk Factor(s): As above, HTN Treatment: Serial CMP, I&O Plan VTE ppx: Heparin given poor renal function with CKD Diet: regular, easy to chew, boost shakes ordered Code status: DNR/DNI Dispo: Med/tele with elevated trop Admission HPI Per Admitting Provider Patient is a 79-year-old female with past history of breast cancer diagnosed in 2018, new brain and pulmonary masses found (to begin radiation therapy on ), hyperlipidemia, prediabetes, subclinical thyroidism, vitamin D deficiency, CKD. She presents today with her due to weakness for the past month, he has had difficulty helping her to the bathroom of the steps for the past few days. She denies history of falls. She denies pain. Patient is hard of hearing so has been provided the following history. He stated that she began with a headache, loss of taste to the left side of her tongue, and difficulty moving her jaw over the summer. She had a brain MRI that showed a brain mass. They then followed with oncology who ordered a PET scan which confirmed left frontal lobe mass with 3 other small masses. they had appointments with Dr. Tong and Dr. Beyer on Monday to discuss bronchoscopy for pulmonary nodule and radiation to begin on . Based off bronchoscopy results will begin chemo once radiation is complete. Her comes in today with concerns with mobility, he cannot assist her to the bathroom anymore. They have about 5 steps from the couch to the bathroom and he cannot seem to get her back after she sits on the toilet. She seems to use all her strength to get there. He stated that her headaches have improved with twice daily dexamethasone although dexamethasone has contributed to her weakness. He is aware that PT/OT consults were placed but they are looking for likely long-term nursing facility placement versus acute rehab as weakness will likely continue with ongoing treatments. Patient denies a headache right now. She took her morning medications but will need her evening dose of dexamethasone; ordered. She has had decreased appetite and likes mostly sized food, agreeable to Ensure shakes. Denies past history of diabetes or VTE. Discharge Plan Discharge Items Patient Disposition: Other Date/Time: 08/18/24 16:23 Hospital Stay Data Consultations 08/11/24 16:17 ED Decision to Admit Stat 08/12/24 10:50 Consult Palliative Care Routine Coding Diagnoses Weakness R53.1 Metastatic cancer C79.9 Leukocytosis D72.829 Elevated troponin R79.89
== END 2024-08-18 18:35 | disposition expired | DRG 55 ==
LOC: ED 14:08 → SUATTDRO 17:24 → EDINP 17:24 → 2N 20:21 → 3W 08-13 00:06